=== PATIENT | male | born 1965 ===

== ENCOUNTER → 2020-11-11 | Outpatient (CLI) | payer OTHER ==
[~2020-11-11] VITALS: Ht 162.6 cm; Wt 81.2 kg
[~2020-11-11] MED LIST: JEVITY 1.5 CAL237 ML PER TUBE; LEVOTHYROXINE50 MC1 PO; PREVACID30 MG PO; PROSCAR 5MG TABL5 M1 PO; VIMPAT100 MG PO; VIMPAT150 MG PO
--- NOTE | ~2020-11-11 | P ---
[facility] [address] PROCEDURE REPORT Name: ARIE SADLER Room #: REG KELLYKate Vargas#: [id number] Admission: 11/11/20 Attend Phys: Tiago Patton Discharge: Date of : 65 Report #: [id number] THIS REPORT FOR: cc: Harmeet Mcmullen MD, Mark L. MD McElhinney, Christian C. MD ~ DATE OF SERVICE: 11/11/2020 PROCEDURE PERFORMED: Upper endoscopy with PEG tube removal and replacement. HISTORY OF PRESENT ILLNESS: The patient is a 55-year-old male who was seen in the office on 11/05/2020. He has a previous history of seizures and aspiration and underwent a PEG tube placement approximately 3 years ago for nutritional support. PEG tube is old and degraded and needs to be replaced. DESCRIPTION OF PROCEDURE: The risks and benefits of the procedure were explained to the patient and his family, those risks including but not limited to bleeding, perforation and the risk of sedation. They understood these risks and gave informed consent. Sedation was given using propofol per anesthesia. Next, using a standard Olympus upper endoscope, the scope was placed in the patient's mouth and advanced under direct vision through the esophagus, stomach and into the second portion of the duodenum. The larynx was normal in appearance. The esophagus was normal throughout. The GE junction was normal. Upon entering the stomach, a small hiatal hernia was noted. Overall, the gastric mucosa was normal. The PEG tube bumper was noted to be in good position in the mid body of the stomach. The pylorus was normal and patent. The duodenal bulb, first and second portion were all normal. The scope was then brought back up into the patient's stomach. The old PEG tube was removed by simple traction through the PEG tube fistula. Next, a blue guidewire was inserted through the fistula and this was grasped with a snare through the endoscope and brought back up into the patient's mouth. Next, a 24-[employer] PEG tube was secured to the blue guidewire and using a pull technique, was put into position without difficulty. The scope was reintroduced into the patient's stomach. The PEG tube bumper was noted to be in good position. At this point, the scope was then withdrawn. The PEG tube was then secured to the anterior abdominal wall. Procedure was terminated. The patient tolerated the procedure well. IMPRESSION: 1. Small hiatal hernia. 2. Otherwise, normal upper endoscopy. 3. Status post removal of old PEG tube with replacement as described above. RECOMMENDATIONS: Okay to start using PEG tube today. [address] [address] PROCEDURE REPORT Name: VIKTORIYAARIEJEANETTE ACOSTA Room #: REG REJI Vargas#: [id number] Admission: 11/11/20 Attend Phys: Tiago Patton Discharge: Date of : 65 Report #: [id number] Thank you for allowing me to participate in his care. By: [id number] Tiago Silveira MD /nt
== END | disposition home or self-care (01) ==
LOC: GI 07:11
PROVIDERS: ATTEND Specialist
DX: K94.23 Gastrostomy malfunction (principal); K44.9 Diaphragmatic hernia without obstruction or gangrene; E03.9 Hypothyroidism, unspecified; N40.0 Benign prostatic hyperplasia without lower urinary tract symptoms; K21.9 Gastro-esophageal reflux disease without esophagitis; Z98.890 Other specified postprocedural states; Z79.899 Other long term (current) drug therapy; Z79.01 Long term (current) use of anticoagulants; Z88.6 Allergy status to analgesic agent
CPT/HCPCS: 62110; 62900